=== PATIENT | female | born 1950 | race Caucasian/White ===

== ENCOUNTER → 2016-08-17 | Outpatient (CLI) | payer OTHER ==
[~2016-08-17] MED LIST: ATV5 PO; CLTP PO; CPR500 PO; DVNUNK; ESCI10TA17 PO; LEVO75TA36 PO; MULT-506 PO; OMEG10007 PO; PHEN-876 PO
[2016-08-17 12:38] LABS: BASO % 1.4 %; BASO ABS # 0.08 K/uL (0-0.2); COMPLETE YES; EOS % 2.6 %; HEMATOCRIT 40.5 % (37-47); IG% 0.3 %; LYMPH % 33.8 %; LYMPH ABS # 1.99 K/uL (1.2-3.4); MEAN CELL VOLUME 91.8 fL (80-100); MEAN CORPUSCULAR HEMOGLOBIN 30.6 pg (25-34); MEAN CORPUSCULAR HGB CONC 33.3 g/dl (32-36); MEAN PLATELET VOLUME 9.3 fL (7.4-10.4); MONO % 9.9 %; PLATELET COUNT 286 K/uL (130-400); RED BLOOD COUNT 4.41 M/uL (4.2-5.4); WHITE BLOOD COUNT 5.88 K/uL (4.8-10.8)
[2016-08-17 13:09] LABS: CALCIUM 9.8 mg/dl (8.5-10.1)
[2016-08-17 13:13] LABS: ALT/SGPT 24 U/L (12-78); AST/SGOT 15 U/L (15-37); BLOOD UREA NITROGEN 16 mg/dl (7-18); BUN/CREATININE RATIO 23.2 (10-20); CARBON DIOXIDE 27 mmol/L (21-32); CHLORIDE 105 mmol/L (98-107); CHOLESTEROL 243 mg/dl (0-200); CREATININE 0.69 mg/dl (0.60-1.20); GLUCOSE 100 mg/dl (70-99); POTASSIUM 3.9 mmol/L (3.5-5.1); SODIUM 140 mmol/L (136-145); TRIGLYCERIDES 359 mg/dl (0-150); VERY LOW DENSITY LIPOPROT CALC 72 mg/dl
[2016-08-17 13:24] LABS: ALB/GLOB RATIO 1.3 (0.9-2); ALKALINE PHOSPHATASE 121 U/L (45-117); CHOLESTEROL/HDL RATIO 5.2; HDL CHOLESTEROL 47 mg/dl; LDL CHOLESTEROL CALCULATED 124 mg/dl
== END | disposition home or self-care (01) ==
LOC: C.LABPBG 07:51
PROVIDERS: ATTEND Internal Medicine Geriatric Medicine
DX: E03.9 Hypothyroidism, unspecified (principal); I10 Essential (primary) hypertension; E78.5 Hyperlipidemia, unspecified; R33.9 Retention of urine, unspecified; M17.9 Osteoarthritis of knee, unspecified

== ENCOUNTER → 2017-04-06 | Outpatient (CLI) | payer OTHER | END | disposition home or self-care (01) | LOC: C.MAMM 09:43 | PROVIDERS: ATTEND Internal Medicine Geriatric Medicine | DX: R74.8 Abnormal levels of other serum enzymes (principal) ==

== ENCOUNTER → 2017-07-05 | Outpatient (CLI) | payer OTHER ==
--- NOTE | 2017-07-05 12:35 | DIAGNOSTIC IMAGING REPORT ---
CERVICAL SPINE 3 VIEWS HISTORY: M54.2 Posterior neck pain COMPARISON: None. FINDINGS: The cervical spine is visualized from C1 through the superior endplate of T1. There is no fracture. 1.5 mm of anterolisthesis of C4 and C5. Moderate disc space narrowing and endplate osteophytes at C5-C6 and C6-C7. Moderate facet degenerative changes throughout the majority of the cervical spine. Prevertebral soft tissues and the atlantodens interval are intact. IMPRESSION: No fractures within the cervical spine. Moderate degenerative changes as described above. Electronically signed by: Darian Talbot M.D. 07/05/2017 12:34 PM Dictated Date/Time: 07/05/2017 12:29 PM
== END | disposition home or self-care (01) ==
LOC: C.RADBC 12:00
PROVIDERS: ATTEND Physician Assistant Medical
DX: M54.2 Cervicalgia (principal)

== ENCOUNTER → 2017-09-02 | Outpatient (CLI) | payer OTHER ==
[2017-09-02 14:51] LABS: ALKALINE PHOSPHATASE 142 U/L (45-117); ALT/SGPT 27 U/L (12-78); AST/SGOT 18 U/L (15-37); BLOOD UREA NITROGEN 17 mg/dl (7-18); CALCIUM 9.7 mg/dl (8.5-10.1); CARBON DIOXIDE 30 mmol/L (21-32); CREATININE 0.75 mg/dl (0.60-1.20); GLUCOSE 89 mg/dl (70-99); POTASSIUM 4.1 mmol/L (3.5-5.1); SODIUM 139 mmol/L (136-145); TOTAL PROTEIN 7.4 gm/dl (6.4-8.2)
== END | disposition home or self-care (01) ==
LOC: C.LABPBG 09:02
PROVIDERS: ATTEND Internal Medicine Geriatric Medicine
DX: I10 Essential (primary) hypertension (principal); R74.8 Abnormal levels of other serum enzymes

== ENCOUNTER 2019-09-05 10:03 | Inpatient (IN) ==
[2019-09-05] MEDS ORDERED: dilTIAZem HCl 5 MG/ML 5 ML VIAL IV STA (10:32)
[2019-09-05] MEDS ORDERED: STAT IV Infusion **Titration per Protocol STA ×2 (10:32→18:00)
--- NOTE | 2019-09-05 10:39 | Emergency Department Note ---
History of Present Illness General Chief Complaint: Cardiac Assessment Stated Complaint: RAPID HEART RATE,AFIB Time Seen by Provider: 09/05/19 10:26 Source: patient Mode of arrival: ambulatory Limitations: no limitations History of Present Illness Provider Complaint: other (Rapid A. fib) This is a 69-year-old female who presents to the ED with a chief complaint of going to her PCP for a routine physical exam. The patient was found to be in A. fib with RVR. She was sent here for further evaluation. The patient states that she otherwise feels fine. She states that she thought she may have felt a little palpitations last night but currently does not feel anything unusual. When she arrived to the ED, she was in A. fib with a heart rate around 140. The patient denies any symptoms at this time. She has no history of A. fib. Nothing makes her better or worse. Home Medications Home Medications Medication Instructions Recorded Confirmed Type cholecalciferol (vitamin D3) 5,000 unit PO QAM 07/21/18 09/05/19 History [Vitamin D3] diphenhydramine-acetaminophen 2 tab PO HS PRN 07/21/18 09/05/19 History [Tylenol PM Extra Strength] magnesium oxide 500 mg PO QAM 07/21/18 09/05/19 History multivitamin 1 tab PO QAM 07/21/18 09/05/19 History timolol maleate 1 drp OPL QAM 07/21/18 09/05/19 History levothyroxine 75 mcg tablet 75 mcg PO QAM #90 tab 10/04/18 09/05/19 Rx escitalopram oxalate 10 mg tablet See Rx Instructions .ROUTE 01/10/19 09/05/19 Rx .COMPLEX #90 tablet pravastatin 20 mg tablet 20 mg PO QAM #90 tab 07/10/19 09/05/19 Rx cyclobenzaprine 10 mg tablet 10 mg PO TID #30 tab 08/25/19 09/05/19 Rx lorazepam 0.5 mg tablet 0.5 mg PO HS #30 tab 08/25/19 09/05/19 Rx acetaminophen [Tylenol Extra 500 mg PO Q6H PRN 09/05/19 09/05/19 History Strength] esomeprazole magnesium 40 mg PO QAM 09/05/19 09/05/19 History hydrochlorothiazide 12.5 mg PO QAM 09/05/19 09/05/19 History latanoprost 1 drp OPB HS 09/05/19 09/05/19 History meloxicam [Mobic] 15 mg PO Q2D 09/05/19 09/05/19 History valsartan 80 mg PO HS 09/05/19 09/05/19 History Allergies Allergy/AdvReac Type Severity Reaction Status Date / Time adhesive Allergy Intermediate skin Verified 09/05/19 11:48 breaks out in blisters and is itchy codeine Allergy Mild nausea/vomi Verified 09/05/19 11:48 ting atorvastatin AdvReac Unknown severe leg Verified 09/05/19 11:48 pain rosuvastatin AdvReac Unknown abdominal Verified 09/05/19 11:48 pain, nausea Past Med/Surg History Medical History Anxiety 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 Degenerative disc disease GERD (gastroesophageal reflux disease) Glaucoma History of cervical cancer (1993) History of colon polyps History of squamous cell carcinoma of skin chest Hyperlipidemia Hypertension Hypothyroidism Insomnia Osteoarthritis Osteopenia Venous insufficiency Surgical History History of bowel resection bowel obstruction History of esophagogastroduodenoscopy (EGD) History of eye surgery right eye History of Mohs micrographic surgery for skin cancer History of surgery lump removed from back of ear under local History of total abdominal hysterectomy and bilateral salpingo-oophorectomy History of wisdom tooth extraction Status post endovenous radiofrequency ablation (RFA) of saphenous vein (2012) b/l legs Family History Mother Family hx colonic polyps Lung cancer Sister Family hx colonic polyps Family/Other Asthma A-fib Dyslipidemia Hypertension Father Lung cancer Other No family history of adverse response to anesthesia Denies family history of Ovarian cancer Prostate cancer Breast cancer Colorectal cancer Social History Preferred Language: Frisian Communication Ability: Effective Visual Impairment: No Limitations Hearing Ability: Normal [place] Custodian Required: No Beliefs That Will Affect Care: None Current Living Situation: Spouse current occupational status: retired Feels Safe at Home: Yes Smoking Status: Never smoker Second Hand Exposure: No ; Hx Alcohol Use: No Hx Substance Use: No Childhood Exposure to Second-Hand Smoke: No Diet Comment: regular caffeine: Yes (1/2 cup coffee) Dental Care, Regularly: Yes Physical Activity Frequency: 3-4 Times per Week Physical Activity Frequency Comment: gym Seatbelt Use: always Sunscreen Use: Yes Review of Systems A total of 10 systems reviewed and were otherwise negative Physical Exam Vital Signs Vital Signs - 24 hr 09/05/19 10:12 09/05/19 11:04 09/05/19 11:30 Temperature 36.3 C L Temperature Source Oral Pulse Rate 115 H 93 H 108 H Pulse Rate from SpO2 Sensor Respiratory Rate 20 21 16 Respiratory Effort / Characteristics Non-Labored Spontaneous Respiratory Depth Normal Blood Pressure 120/89 118/74 105/82 Blood Pressure Mean 99 88 90 Blood Pressure Position Sitting Pulse Oximetry 97 96 96 Oxygen Delivery Method Room Air Sepsis Recent Fever Within 48 Hours No Sepsis Action Taken by Nursing No Action Required 09/05/19 12:01 09/05/19 12:30 09/05/19 13:00 Temperature Temperature Source Pulse Rate 101 H 98 H 102 H Pulse Rate from SpO2 Sensor 106 H 102 H Respiratory Rate 17 16 20 Respiratory Effort / Characteristics Respiratory Depth Blood Pressure 119/97 125/83 130/100 Blood Pressure Mean 102 93 105 Blood Pressure Position Pulse Oximetry 95 95 97 Oxygen Delivery Method Sepsis Recent Fever Within 48 Hours Sepsis Action Taken by Nursing 09/05/19 13:31 09/05/19 14:00 Temperature Temperature Source Pulse Rate 112 H 114 H Pulse Rate from SpO2 Sensor 100 H 107 H Respiratory Rate 20 17 Respiratory Effort / Characteristics Respiratory Depth Blood Pressure 149/88 H 123/86 Blood Pressure Mean 103 88 Blood Pressure Position Pulse Oximetry 95 94 Oxygen Delivery Method Sepsis Recent Fever Within 48 Hours Sepsis Action Taken by Nursing CONSTITUTIONAL/VITAL SIGNS: Reviewed / noted above. GENERAL: Non-toxic in appearance. INTEGUMENTARY: Warm, dry, and [place]. HEAD: Normocephalic. EYES: without scleral icterus or trauma. ENT/OROPHARYNX: clear and moist. LYMPHADENOPATHY/NECK: Is supple without lymphadenopathy or meningismus. RESPIRATORY: Lungs clear and equal. CARDIOVASCULAR: Rapid and irregular rhythm GI/ABDOMEN: Soft and nontender. No organomegaly or pulsatile mass. No rebound or guarding. Normal bowel sounds. EXTREMITIES: Warm and well perfused. BACK: No CVA tenderness. NEUROLOGICAL: Intact without focal deficits. PSYCHIATRIC: normal affect. MUSCULOSKELETAL: Normally developed with good muscle tone. TRIAGE NURSING DOCUMENTATION REVIEWED. Course Administered Medications Diltiazem HCl 125 mg/ Dextrose 125 mls @ 5 mls/hr IV .Q24H JET; Protocol Stop: 10/05/19 10:44 Last Titration: 09/05/19 12:23 Dose: 10 mg/hr, 10 mls/hr Documented by: [id number] Cosigned by: [id number] Admin: 09/05/19 10:57 Dose: 5 mg/hr, 5 mls/hr Documented by: [id number] Cosigned by: [id number] Discontinued Medications Apixaban (Eliquis) 5 mg PO ONCE ONE Stop: 09/05/19 13:16 Last Admin: 09/05/19 13:36 Dose: 5 mg Documented by: [id number] Diltiazem HCl (Cardizem) 20 mg IV NOW STA Stop: 09/05/19 10:33 Last Admin: 09/05/19 10:57 Dose: 20 mg Documented by: [id number] Cosigned by: [id number] Sodium Chloride (Nss) 500 mls @ 999 mls/hr IV .Q31M JET Stop: 09/05/19 11:15 Last Infusion: 09/05/19 11:46 Dose: 0 mls/hr Documented by: [id number] Admin: 09/05/19 11:01 Dose: 999 mls/hr Documented by: [id number] Miscellaneous () 1 ea N/A NOW STA Stop: 09/05/19 10:33 Last Admin: 09/05/19 10:58 Dose: Not Given Documented by: [id number] Medical Decision Making Differential Diagnosis The differential that was considered includes acute myocardial infarction, acute coronary syndrome, myocarditis, pericarditis, pericardial effusions /tamponade, esophageal perforation, thoracic aortic dissection, pulmonary embolism, pneumonia, pneumothorax, pancreatitis, shingles, acute cholecystitis, perforated abdominal viscus. Medical Records Attestation: I reviewed the patient's medical records. Home Medications Current Medication List: was personally reviewed by me Laboratory Data Attestation: I reviewed the patient's lab results. Result diagrams: 09/05/19 10:40 09/05/19 10:40 Labs: Lab Results 09/05/19 09/05/19 09/05/19 Range/Units 10:40 10:40 10:40 WBC 7.25 (4.8-10.8) K/uL RBC 4.76 (4.2-5.4) M/uL Hgb 15.3 (12.0-16.0) g/dL Hct 43.7 (37-47) % MCV 91.8 (80-100) fL MCH 32.1 (25-34) pg MCHC 35.0 (32-36) g/dL RDW Std Deviation 43.2 (36.4-46.3) fL RDW Coeff of Malena 12.8 (11.5-14.5) % Plt Count 290 (130-400) K/uL MPV 9.1 (7.4-10.4) fL Immature Gran % (Auto) 0.3 % Neut % (Auto) 54.6 % Lymph % (Auto) 33.5 % [place] % (Auto) 8.0 % Eos % (Auto) 2.5 % Baso % (Auto) 1.1 % Immature Gran # (Auto) 0.02 (0.00-0.02) K/uL Neut # (Auto) 3.96 (1.4-6.5) K/uL Lymph # (Auto) 2.43 (1.2-3.4) K/uL [place] # (Auto) 0.58 (0.11-0.59) K/uL Eos # (Auto) 0.18 (0-0.5) K/uL Baso # (Auto) 0.08 (0-0.2) K/uL PT 11.2 (9.0-12.0) Seconds INR 1.1 (0.9-1.1) APTT 28.7 (21.0-31.0) Seconds PTT Ratio 1.0 Sodium 141 (136-145) mmol/L Potassium 4.3 (3.5-5.1) mmol/L Chloride 107 (98-107) mmol/L Carbon Dioxide 27 (21-32) mmol/L Anion Gap 7.0 (3-11) BUN 20 H (7-18) mg/dl Creatinine 0.81 (0.6-1.2) mg/dl Est Cr Clr Drug Dosing 66.9 ml/min Est GFR ( Amer) 85.9 Est GFR (Non-Af Amer) 74.1 BUN/Creatinine Ratio 24.4 H (10-20) Glucose 109 H (70-99) mg/dl Calcium 9.8 (8.5-10.1) mg/dl Total Bilirubin 0.4 (0.2-1) mg/dl AST 23 (15-37) U/L ALT 33 (12-78) U/L Alkaline Phosphatase 151 H (45-117) U/L Total Creatine Kinase 99 (26-192) U/L Troponin I 0.085 H* (0-0.045) ng/ml Total Protein 7.8 (6.4-8.2) gm/dl Albumin 4.1 (3.4-5.0) gm/dl Globulin 3.7 (2.5-4.0) gm/dl Albumin/Globulin Ratio 1.1 (0.9-2) Lipase 95 (73-393) U/L TSH 1.110 (0.300-4.500) uIu/ml Imaging Data Chest x-ray: Attestation: I personally reviewed and interpreted this imaging study as f jyotsna: My impression: No acute disease Radiologist's impression: Chest x-ray: No acute process ECG Data Attestation: I personally reviewed and interpreted this ECG as follows: Indication: palpitations Rate (beats per minute): 150 Rhythm: atrial fibrillation Findings: no PVC, no ST elevation and no prolonged QT Blood Pressure Blood Pressure Findings: Normal blood pressure MDM Narrative This is a 69-year-old female who presents to the ED with a chief complaint of going to her PCP for a routine physical exam. The patient was found to be in A. fib with RVR. She was sent here for further evaluation. The patient states that she otherwise feels fine. She states that she thought she may have felt a little palpitations last night but currently does not feel anything unusual. When she arrived to the ED, she was in A. fib with a heart rate around 140. The patient denies any symptoms at this time. She has no history of A. fib. Her exam reveals a rapid and irregular heart rate. Exam was otherwise unremarkable. The patient's monitor and twelve-lead EKG show the patient is in atrial fibrillation with RVR with a heart rate around 150. The patient was started on IV Cardizem bolus and IV Cardizem drip. This improved the heart rate but she remained in atrial fibrillation. A twelve-lead EKG shows A. fib at a rate of 150 without ischemic changes. The patient's troponin was slightly elevated. Her chemistry panel and CBC were unremarkable. The patient will be seen by the hospitalist for further inpatient evaluation and care. She was given a dose of Eliquis p.o. here. Cardiac monitoring: An order was placed for continuous cardiac monitoring. The monitor shows a rate of 100-1140 with atrial fibrillation rhythm. Impression & Plan Atrial fibrillation with RVR, Elevated troponin Critical Care Time Critical Care Time: Yes Total Critical Care Time: 40 Discharge Plan Visit Data Chief Complaint: Cardiac Assessment Stated Complaint: RAPID HEART RATE,AFIB ED Provider: Liam Martin Discharge Problem: Atrial fibrillation with RVR, Elevated troponin Patient Disposition: Admitted As Inpatient Forms Stand Alone Forms: [facility] Prescriptions Prescriptions: No Action levothyroxine 75 mcg tablet 75 mcg PO QAM Qty: 90 RF: 3 escitalopram oxalate 10 mg tablet See Rx Instructions .ROUTE .COMPLEX Qty: 90 RF: 1 pravastatin 20 mg tablet 20 mg PO QAM Qty: 90 RF: 1 cyclobenzaprine 10 mg tablet 10 mg PO TID Qty: 30 RF: 0 lorazepam 0.5 mg tablet 0.5 mg PO HS Qty: 30 RF: 0 magnesium oxide 500 mg Tablet 500 mg PO QAM RF: 0 diphenhydramine-acetaminophen [Tylenol PM Extra Strength] 25-500 mg Tablet 2 tab PO HS PRN (Reason: Sleep) RF: 0 multivitamin Tablet 1 tab PO QAM RF: 0 timolol maleate 0.5 % Drops 1 drp OPL QAM RF: 0 cholecalciferol (vitamin D3) [Vitamin D3] 5,000 unit Tablet 5,000 unit PO QAM RF: 0 latanoprost 0.005 % drops 1 drp OPB HS RF: 0 acetaminophen [Tylenol Extra Strength] 500 mg Tablet 500 mg PO Q6H PRN (Reason: Pain) RF: 0 meloxicam [Mobic] 15 mg tablet 15 mg PO Q2D RF: 0 valsartan 80 mg tablet 80 mg PO HS RF: 0 esomeprazole magnesium 40 mg capsule,delayed release(DR/EC) 40 mg PO QAM RF: 0 hydrochlorothiazide 12.5 mg tablet 12.5 mg PO QAM RF: 0 Referrals Referrals: Ricotta,Cherelle M., DO [Primary Care Provider] -
[2019-09-05] MEDS ORDERED: SODIUM CHLORIDE 0.9% 500 ML IV SCH (10:45)
[2019-09-05] MEDS ORDERED: dilTIAZem HCL 125 MG in DEXTROSE 5% 100 ML IV SCH ×2 (10:45→18:00)
--- NOTE | 2019-09-05 10:57 | XRay Report ---
XR chest 1V portable HISTORY: Atypical Chest Pain COMPARISON: None. FINDINGS: Mild eventration of right hemidiaphragm. The heart is normal in size. The lungs are clear. No pleural effusions. No pneumothorax. IMPRESSION: No acute process. ACT 112: Negative or not required by law. Electronically signed by: Darian Talbot M.D. 09/05/2019 10:55 AM
[2019-09-05 11:06] LABS: Basophils # (auto) 0.08 K/uL (0-0.2); Basophils % (auto) 1.1 %; Eosinophils # (auto) 0.18 K/uL (0-0.5); Eosinophils % (auto) 2.5 %; Hematocrit (blood only) 43.7 % (37-47); Hemoglobin 15.3 g/dL (12.0-16.0); Immature Granulocytes # (auto) 0.02 K/uL (0.00-0.02); Immature Granulocytes % (auto) 0.3 %; Lymphocytes # (auto) 2.43 K/uL (1.2-3.4); Lymphocytes % (auto) 33.5 %; Mean Corpuscular Hemoglobin 32.1 pg (25-34); Mean Corpuscular Volume 91.8 fL (80-100); Mean Platelet Volume 9.1 fL (7.4-10.4); Monocytes # (auto) 0.58 K/uL (0.11-0.59); Neutrophils # (auto) 3.96 K/uL (1.4-6.5); Neutrophils % (auto) 54.6 %; Platelet Count 290 K/uL (130-400); RDW Coefficient of Variation 12.8 % (11.5-14.5); RDW Standard Deviation 43.2 fL (36.4-46.3); Red Blood Count 4.76 M/uL (4.2-5.4); White Blood Count 7.25 K/uL (4.8-10.8)
[2019-09-05 11:19] LABS: Albumin Level 4.1 gm/dl (3.4-5.0); BUN Creatinine Ratio 24.4 (10-20); Calcium 9.8 mg/dl (8.5-10.1); Creatinine Clr Calc Pharmacy 66.9 ml/min; Est GFR (African American) 85.9; Est GFR (Non-African American) 74.1; INR 1.1 (0.9-1.1); Partial Thromboplastin Time 28.7 Seconds (21.0-31.0); Potassium 4.3 mmol/L (3.5-5.1); Prothrombin Time 11.2 Seconds (9.0-12.0)
[2019-09-05 11:40] LABS: Albumin Globulin Ratio 1.1 (0.9-2); Bilirubin,Total 0.4 mg/dl (0.2-1); Globulin 3.7 gm/dl (2.5-4.0); Thyroid Stimulating Hormone 1.11 uIu/ml (0.300-4.500); Total Protein 7.8 gm/dl (6.4-8.2); Troponin I 0.085 ng/ml (0-0.045)
[2019-09-05] MEDS ORDERED: APIXABAN 5 MG TABLET PO SCH (13:00)
[2019-09-05] MEDS ORDERED: APIXABAN 5 MG TABLET PO ONE (13:15)
--- NOTE | 2019-09-05 14:55 | History & Physical Report ---
Date of Service September 05, 2019 Assessment & Plan (1) Atrial fibrillation with RVR: Uncertain etiology CBC, PRP WNL CXR neg for acute Trop with mild elevation, likely demand ischemia HR in the 140s on arrival, now low 100s s/p cardizem drip Continue cardizem drip ECHO, overnight pulse ox pending TSH WNL Started on eliquis in the ED, will continue Cardiology c/s pending (2) Elevated troponin: As noted above, serials pending (3) Anxiety: continue home meds (4) Insomnia: continue home meds (5) Hypertension: continue home meds (6) Hypothyroidism: continue home meds TSH WNL (7) Hyperlipidemia: continue home meds Lipids pending (8) GERD (gastroesophageal reflux disease): continue home meds (9) History of squamous cell carcinoma of skin: Multiple episodes removed "over the years" (10) History of cervical cancer: 1993 (11) DVT prophylaxis: Eliquis History of Present Illness Primary Care Provider: Cherelle Ayala, DO 69 y/o F who was sent here from PCP's office after a routine EKG being done as part of a wellness exam revealed afib with RVR. Pt denies prior hx of same. She states that she does occasionally get palpitations over the years, but these are generally fleeting. She states that she had this several times last night and that it was bothersome to her throughout the night which has never happened before. Pt states that she has been SOB with stairs the last two weeks, which is new for her. She has a lot of knee pain and thought that this was related to her knees plus the fact that she has been gaining weight since the holidays, particularly the last two months. Pt denies fever, chest pain, abd pain, n/v/c/d, LE swelling. Pt states that she does snore. No hx of sleep study. Allergies Allergy/AdvReac Type Severity Reaction Status Date / Time adhesive Allergy Intermediate skin Verified 09/05/19 11:48 breaks out in blisters and is itchy codeine Allergy Mild nausea/vomi Verified 09/05/19 11:48 ting atorvastatin AdvReac Unknown severe leg Verified 09/05/19 11:48 pain rosuvastatin AdvReac Unknown abdominal Verified 09/05/19 11:48 pain, nausea Home Medications Home Medications Medication Instructions Recorded Confirmed Type cholecalciferol (vitamin D3) 5,000 unit PO QAM 07/21/18 09/05/19 History [Vitamin D3] diphenhydramine-acetaminophen 2 tab PO HS PRN 07/21/18 09/05/19 History [Tylenol PM Extra Strength] magnesium oxide 500 mg PO QAM 07/21/18 09/05/19 History multivitamin 1 tab PO QAM 07/21/18 09/05/19 History timolol maleate 1 drp OPL QAM 07/21/18 09/05/19 History levothyroxine 75 mcg tablet 75 mcg PO QAM #90 tab 10/04/18 09/05/19 Rx escitalopram oxalate 10 mg tablet See Rx Instructions .ROUTE 01/10/19 09/05/19 Rx .COMPLEX #90 tablet pravastatin 20 mg tablet 20 mg PO QAM #90 tab 07/10/19 09/05/19 Rx cyclobenzaprine 10 mg tablet 10 mg PO TID #30 tab 08/25/19 09/05/19 Rx lorazepam 0.5 mg tablet 0.5 mg PO HS #30 tab 08/25/19 09/05/19 Rx acetaminophen [Tylenol Extra 500 mg PO Q6H PRN 09/05/19 09/05/19 History Strength] esomeprazole magnesium 40 mg PO QAM 09/05/19 09/05/19 History hydrochlorothiazide 12.5 mg PO QAM 09/05/19 09/05/19 History latanoprost 1 drp OPB HS 09/05/19 09/05/19 History meloxicam [Mobic] 15 mg PO Q2D 09/05/19 09/05/19 History valsartan 80 mg PO HS 09/05/19 09/05/19 History Past Med/Surg History Medical History Anxiety 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 Degenerative disc disease GERD (gastroesophageal reflux disease) Glaucoma History of cervical cancer (1993) History of colon polyps History of squamous cell carcinoma of skin chest Hyperlipidemia Hypertension Hypothyroidism Insomnia Osteoarthritis Osteopenia Venous insufficiency Surgical History History of bowel resection bowel obstruction History of esophagogastroduodenoscopy (EGD) History of eye surgery right eye History of Mohs micrographic surgery for skin cancer History of surgery lump removed from back of ear under local History of total abdominal hysterectomy and bilateral salpingo-oophorectomy History of wisdom tooth extraction Status post endovenous radiofrequency ablation (RFA) of saphenous vein (2012) b/l legs Family History (Updated 09/05/19 @ 15:04 by Emily Ellison DO) Mother Family hx colonic polyps Lung cancer Pacemaker Sister Family hx colonic polyps Pacemaker Family/Other Asthma A-fib Dyslipidemia Hypertension Father Lung cancer Other No family history of adverse response to anesthesia Denies family history of Ovarian cancer Prostate cancer Myocardial infarction Breast cancer Colorectal cancer Social History Preferred Language: Bruneian Communication Ability: Effective Visual Impairment: No Limitations Hearing Ability: Normal It Account Manager Required: No Beliefs That Will Affect Care: None Current Living Situation: Spouse current occupational status: retired Other Information That Helps Us Care for You: No Feels Safe at Home: Yes Safety Concerns: Feels Safe At This Time Smoking Status: Never smoker Second Hand Exposure: No ; Hx Alcohol Use: No Hx Substance Use: No Childhood Exposure to Second-Hand Smoke: No Diet Comment: regular caffeine: Yes (1/2 cup coffee) Dental Care, Regularly: Yes Physical Activity Frequency: 3-4 Times per Week Physical Activity Frequency Comment: gym Seatbelt Use: always Sunscreen Use: Yes Review of Systems Review of Systems: Pertinent positives and negatives reviewed in HPI--all others negative Physical Exam Constitutional: WD/WN, vitals as above Eyes: normal visual aparicio by confrontation and + anicteric sclerae Neck: normal visual inspection and trachea midline Respiratory: normal respiratory effort, lungs clear to auscultation Cardiovascular: Rate/Rhythm: + irregularly irregular Gastrointestinal (Abdomen): Inspection/Auscultation: abdomen not distended Percussion/Palpation: abdomen soft; abdomen nontender Musculoskeletal: Head/Neck/Chest: normocephalic and head atraumatic negative for edema, peripheral pulses intact Skin: no rashes, warm and dry Neurologic: awake; not confused Speech / Cognition: normal speech Psychiatric: A+Ox3, euthymic affect Results & Data Results & Data ([facility]) Vital Signs (Past 12 Hours) Vital Signs Temp Pulse Resp BP Pulse Ox 05/19/20 14:00 114 H 17 123/86 94 09/05/19 13:31 112 H 20 149/88 H 95 09/05/19 13:00 102 H 20 130/100 97 09/05/19 12:30 98 H 16 125/83 95 09/05/19 12:01 101 H 17 119/97 95 09/05/19 11:30 108 H 16 105/82 96 09/05/19 11:04 93 H 21 118/74 96 09/05/19 10:12 36.3 C L 115 H 20 120/89 97 Diagnostic Findings CXR: neg for acute ECG Additional Comments: Afib/RVR Code Status & VTE Plan Code Status Full code VTE Prophylaxis Plan VTE Prophylaxis will be ordered: Yes PG Care Time/CCT Total # of Minutes Spent Total Time Spent with Patient: Total time spent is greater than 50% in coordination of care (as documented) at patient's floor/unit and/or counseling patient: Coding Level of Care Code 18898 Initial Inpt Care Lvl 3 Diagnoses Atrial fibrillation with RVR I48.91 Elevated troponin R79.89 Anxiety F41.9 Insomnia G47.00 Hypertension I10 Hypothyroidism E03.9 Hyperlipidemia E78.5 GERD (gastroesophageal reflux disease) K21.9 History of squamous cell carcinoma of skin Z85.828 History of cervical cancer Z85.41 DVT prophylaxis Z29.9
--- NOTE | 2019-09-05 15:54 | Electrocardiogram Report ---
Test Reason : Blood Pressure : / mmHG Vent. Rate : 149 BPM Atrial Rate : 227 BPM P-R Int : 000 ms QRS Dur : 076 ms QT Int : 284 ms P-R-T Axes : 000 022 000 degrees QTc Int : 447 ms Atrial fibrillation with rapid ventricular response Abnormal ECG When compared with ECG of 15-JAN-1994 08:59, Atrial fibrillation has replaced Sinus rhythm Vent. rate has increased BY 68 BPM Inverted T waves have replaced nonspecific T wave abnormality in Inferior leads T wave amplitude has decreased in Anterolateral leads Confirmed by Trell Carreon ([id number]) on 09/05/2019 3:54:18 PM Referred By: Cherelle Ayala Confirmed By:Jorden Carreon
[2019-09-05] MEDS ORDERED: ACETAMINOPHEN 500 MG TAB PO PRN ×2 (18:00→18:22)
[2019-09-05] MEDS ORDERED: ONDANSETRON INJ 2 MG/ML 2 ML VIAL IV PRN (18:00)
[2019-09-05] MEDS ORDERED: MAGNESIUM HYDROXIDE SUSP 30 ML UDC PO PRN (18:00)
[2019-09-05] MEDS ORDERED: LATANOPROST 0.005% OP SOLN 2.5 ML BTL OPB SCH (21:00)
[2019-09-05] MEDS ORDERED: LORazepam 0.5 MG TAB PO SCH (21:00)
[2019-09-05] MEDS ORDERED: VALSARTAN 80 MG TAB PO SCH (21:00)
[2019-09-05] MEDS: APIXABAN 5 MG TABLET PO SCH (21:11)
[2019-09-05] MEDS: CYCLOBENZAPRINE HCL 10 MG TAB PO SCH (21:11)
[2019-09-06] MEDS ORDERED: LEVOTHYROXINE SODIUM 75 MCG TABLET PO SCH (06:30)
[2019-09-06 08:31] LABS: BUN Creatinine Ratio 21.6 (10-20); Calcium 9.8 mg/dl (8.5-10.1); Creatinine Clr Calc Pharmacy 73.2 ml/min; Est GFR (African American) 95.8; Est GFR (Non-African American) 82.7; Potassium 4.3 mmol/L (3.5-5.1)
[2019-09-06] MEDS: APIXABAN 5 MG TABLET PO SCH (08:37)
[2019-09-06] MEDS: CYCLOBENZAPRINE HCL 10 MG TAB PO SCH (08:37)
[2019-09-06] MEDS ORDERED: ESCITALOPRAM OXALATE 10 MG TAB PO SCH (09:00)
[2019-09-06] MEDS ORDERED: hydroCHLOROthiazide 25 MG TAB PO SCH (09:00)
[2019-09-06] MEDS ORDERED: PRAVASTATIN SOD 20 MG TAB PO SCH (09:00)
[2019-09-06] MEDS ORDERED: PANTOprazole 40 MG TAB PO SCH (09:00)
[2019-09-06] MEDS ORDERED: MULTIVITAMIN TAB PO SCH (09:00)
[2019-09-06] MEDS ORDERED: CHOLECALCIFEROL 1,000 UNITS 25 MCG TAB PO SCH (09:00)
[2019-09-06] MEDS ORDERED: MAGNESIUM OXIDE 400 MG TAB PO SCH (09:00)
[2019-09-06] MEDS ORDERED: TIMOLOL MALEATE 0.25% OP SOLN 5 ML BTL OPL SCH (09:00)
--- NOTE | 2019-09-06 09:50 | Cardiology Consultation ---
Date of Consultation September 06, 2019 Assessment & Plan (1) Atrial fibrillation with RVR: 69 yo F with HTN who was admitted for first episode of symptomatic Afib. 1. Atrial Fibrillation with RVR - spontaneously converted back to sinus on 09/04 at 19:22 - TTE showed no valvular heart disease, stage I diastolic dysfunction, mild LVH - would benefit from switching HCTZ + valsartan to 240 mg Diltiazem for combined BP and afib rate control moving forward - agree with starting Eliquis - pulse ox analysis for questionable sleep apnea negative - follow up with cardiology outpatient 2. Elevated Troponins - Trops trended (0.085, 0.060, 0.067) - in setting of no chest pain or complaints, spontaneous conversion out of Afib, no further action recommended (2) Elevated troponin: Supervising Physician Co-Signing Physician Notes I saw and examined the patient with Dr. nunez tone agree with the documentation noted above. Briefly, the patient presented for an annual evaluation and was discovered to have atrial fibrillation and high ventricular rates. She did have some mild symptoms associated with her high ventricular rates. The etiology of her atrial fibrillation is likely age related and chronic hypertension. She does not appear to have a positive screen for obstructive sleep apnea. Think the best option for treatment is a rate control strategy at this point. Perhaps her antihypertensives can be changed to diltiazem for both its antihypertensive effect and rate control benefits. Her chads Vasc score is high enough that she should be on systemic anticoagulation indefinitely. The patient did return to sinus rhythm. I think it is safe for discharge in follow-up in the outpatient setting. History of Present Illness Attending Physician: Emily Ellison DO History of Present Illness 69 yo F who was sent to ED by her PCP after being found to be in Afib while at her annual physical. Denied any palpitations, chest pain, SOB, during episode. Attests to having a family history of Afib in her mother and 3/4 sisters. Denies personal hx of [place], stroke, no hx of anticoagulation. Was able to tell when she converted out of Afib spontaneously because her "chest felt peaceful". Denies any previous AFib hx Allergies Allergy/AdvReac Type Severity Reaction Status Date / Time adhesive Allergy Intermediate skin Verified 09/05/19 11:48 breaks out in blisters and is itchy codeine Allergy Mild nausea/vomi Verified 09/05/19 11:48 ting atorvastatin AdvReac Unknown severe leg Verified 09/05/19 11:48 pain rosuvastatin AdvReac Unknown abdominal Verified 09/05/19 11:48 pain, nausea Home Medications Home Medications Medication Instructions Recorded Confirmed Type cholecalciferol (vitamin D3) 5,000 unit PO QAM 07/21/18 09/05/19 History [Vitamin D3] diphenhydramine-acetaminophen 2 tab PO HS PRN 07/21/18 09/05/19 History [Tylenol PM Extra Strength] magnesium oxide 500 mg PO QAM 07/21/18 09/05/19 History multivitamin 1 tab PO QAM 07/21/18 09/05/19 History timolol maleate 1 drp OPL QAM 07/21/18 09/05/19 History levothyroxine 75 mcg tablet 75 mcg PO QAM #90 tab 10/04/18 09/05/19 Rx escitalopram oxalate 10 mg tablet See Rx Instructions .ROUTE 01/10/19 09/05/19 Rx .COMPLEX #90 tablet pravastatin 20 mg tablet 20 mg PO QAM #90 tab 07/10/19 09/05/19 Rx cyclobenzaprine 10 mg tablet 10 mg PO TID #30 tab 08/25/19 09/05/19 Rx lorazepam 0.5 mg tablet 0.5 mg PO HS #30 tab 08/25/19 09/05/19 Rx acetaminophen [Tylenol Extra 500 mg PO Q6H PRN 09/05/19 09/05/19 History Strength] esomeprazole magnesium 40 mg PO QAM 09/05/19 09/05/19 History latanoprost 1 drp OPB HS 09/05/19 09/05/19 History meloxicam [Mobic] 15 mg PO Q2D 09/05/19 09/05/19 History apixaban [Eliquis] 5 mg PO BID #60 tab 09/06/19 Rx diltiazem HCl 240 mg PO DAILY #30 cap 09/06/19 Rx Patient History Medical History Anxiety 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 Degenerative disc disease GERD (gastroesophageal reflux disease) Glaucoma History of cervical cancer (1993) History of colon polyps History of squamous cell carcinoma of skin chest Hyperlipidemia Hypertension Hypothyroidism Insomnia Osteoarthritis Osteopenia Venous insufficiency Surgical History History of bowel resection bowel obstruction History of esophagogastroduodenoscopy (EGD) History of eye surgery right eye History of Mohs micrographic surgery for skin cancer History of surgery lump removed from back of ear under local History of total abdominal hysterectomy and bilateral salpingo-oophorectomy History of wisdom tooth extraction Status post endovenous radiofrequency ablation (RFA) of saphenous vein (2012) b/l legs Family History (Updated 09/05/19 @ 15:04 by Emily Ellison DO) Mother Family hx colonic polyps Lung cancer Pacemaker Sister Family hx colonic polyps Pacemaker Family/Other Asthma A-fib Dyslipidemia Hypertension Father Lung cancer Other No family history of adverse response to anesthesia Denies family history of Ovarian cancer Prostate cancer Myocardial infarction Breast cancer Colorectal cancer Social History Preferred Language: Yemeni Communication Ability: Effective Visual Impairment: No Limitations Hearing Ability: Normal Manufactured Buildings Repairer Required: No Beliefs That Will Affect Care: None Current Living Situation: Spouse current occupational status: retired Feels Safe at Home: Yes Smoking Status: Never smoker Second Hand Exposure: No ; Hx Alcohol Use: No Hx Substance Use: No Childhood Exposure to Second-Hand Smoke: No Diet Comment: regular caffeine: Yes (1/2 cup coffee) Dental Care, Regularly: Yes Physical Activity Frequency: 3-4 Times per Week Physical Activity Frequency Comment: gym Seatbelt Use: always Sunscreen Use: Yes Review of Systems Constitutional: no fatigue and no weakness Respiratory: + dyspnea on exertion; no cough, no dyspnea, no hemoptysis and no pain on inspiration Cardiovascular: + dyspnea on exertion; no chest pain, no chest pain with activity, no dyspnea at rest, no orthopnea, no palpitations, no lightheadedness and no edema Gastrointestinal: no abdominal pain and no nausea Neurologic: no dizziness Physical Exam Constitutional: WD/WN, vitals as above average body habitus Respiratory: normal respiratory effort, lungs clear to auscultation Auscultation: no rales, no rhonchi, no wheezes and no pleural rub Cardiovascular: RRR, no murmur, no edema Heart Sounds: normal S1 and normal S2; no gallop, no murmur and no cardiac rub Extremities: normal capillary refill; no calf tenderness and no edema Results & Data ([facility]) Vital Signs (Past 12 Hours) Vital Signs Temp Pulse Pulse Pulse Resp BP Pulse Ox 09/06/19 07:45 37.0 C 74 15 119/78 95 09/06/19 07:31 68 09/06/19 03:34 36.8 C 75 16 105/64 98 09/05/19 23:29 36.8 C 71 19 112/68 95 09/05/19 22:23 71 Pulse Ox 09/06/19 07:45 09/06/19 07:31 09/06/19 03:34 09/05/19 23:29 09/05/19 22:23 93 Laboratory Results WBC 7.25 K/uL (4.8-10.8) 09/05/19 10:40 RBC 4.76 M/uL (4.2-5.4) 09/05/19 10:40 Hgb 15.3 g/dL (12.0-16.0) 09/05/19 10:40 Hct 43.7 % (37-47) 09/05/19 10:40 MCV 91.8 fL (80-100) 09/05/19 10:40 MCH 32.1 pg (25-34) 09/05/19 10:40 MCHC 35.0 g/dL (32-36) 09/05/19 10:40 RDW Std Deviation 43.2 fL (36.4-46.3) 09/05/19 10:40 RDW Coeff of Malena 12.8 % (11.5-14.5) 09/05/19 10:40 Plt Count 290 K/uL (130-400) 09/05/19 10:40 MPV 9.1 fL (7.4-10.4) 09/05/19 10:40 Immature Gran % (Auto) 0.3 % 09/05/19 10:40 Neut % (Auto) 54.6 % 09/05/19 10:40 Lymph % (Auto) 33.5 % 09/05/19 10:40 Travis % (Auto) 8.0 % 09/05/19 10:40 Eos % (Auto) 2.5 % 09/05/19 10:40 Baso % (Auto) 1.1 % 09/05/19 10:40 Immature Gran # (Auto) 0.02 K/uL (0.00-0.02) 09/05/19 10:40 Neut # (Auto) 3.96 K/uL (1.4-6.5) 09/05/19 10:40 Lymph # (Auto) 2.43 K/uL (1.2-3.4) 09/05/19 10:40 Travis # (Auto) 0.58 K/uL (0.11-0.59) 09/05/19 10:40 Eos # (Auto) 0.18 K/uL (0-0.5) 09/05/19 10:40 Baso # (Auto) 0.08 K/uL (0-0.2) 09/05/19 10:40 PT 11.2 Seconds (9.0-12.0) 09/05/19 10:40 INR 1.1 (0.9-1.1) 09/05/19 10:40 APTT 28.7 Seconds (21.0-31.0) 09/05/19 10:40 PTT Ratio 1.0 09/05/19 10:40 Sodium 141 mmol/L (136-145) 09/06/19 07:42 Potassium 4.3 mmol/L (3.5-5.1) 09/06/19 07:42 Chloride 107 mmol/L (98-107) 09/06/19 07:42 Carbon Dioxide 26 mmol/L (21-32) 09/06/19 07:42 Anion Gap 8.0 (3-11) 09/06/19 07:42 BUN 16 mg/dl (7-18) 09/06/19 07:42 Creatinine 0.74 mg/dl (0.6-1.2) 09/06/19 07:42 Est Cr Clr Drug Dosing 73.2 ml/min 09/06/19 07:42 Est GFR ( Amer) 95.8 09/06/19 07:42 Est GFR (Non-Af Amer) 82.7 09/06/19 07:42 BUN/Creatinine Ratio 21.6 (10-20) H 09/06/19 07:42 Glucose 99 mg/dl (70-99) 09/06/19 07:42 Calcium 9.8 mg/dl (8.5-10.1) 09/06/19 07:42 Total Bilirubin 0.4 mg/dl (0.2-1) 09/05/19 10:40 AST 23 U/L (15-37) 09/05/19 10:40 ALT 33 U/L (12-78) 09/05/19 10:40 Alkaline Phosphatase 151 U/L (45-117) H 09/05/19 10:40 Total Creatine Kinase 99 U/L (26-192) 09/05/19 10:40 Troponin I 0.067 ng/ml (0-0.045) H* 09/06/19 00:16 Total Protein 7.8 gm/dl (6.4-8.2) 09/05/19 10:40 Albumin 4.1 gm/dl (3.4-5.0) 09/05/19 10:40 Globulin 3.7 gm/dl (2.5-4.0) 09/05/19 10:40 Albumin/Globulin Ratio 1.1 (0.9-2) 09/05/19 10:40 Triglycerides 210 mg/dl (0-150) H 09/06/19 07:42 Cholesterol 208 mg/dl (0-200) H 09/06/19 07:42 LDL Cholesterol, Calc 126 mg/dl 09/06/19 07:42 VLDL Cholesterol, Calc 42 mg/dl 09/06/19 07:42 HDL Cholesterol 40 mg/dl 09/06/19 07:42 Cholesterol/HDL Ratio 5 09/06/19 07:42 Lipase 95 U/L (73-393) 09/05/19 10:40 TSH 1.110 uIu/ml (0.300-4.500) 09/05/19 10:40 Resident Activity Tracking Resident Involvement: Resident Care Provided Care Provided: Adult Hospital Medicine
--- NOTE | 2019-09-06 10:01 | XCELERA ---
[id number]
--- NOTE | 2019-09-06 10:31 | Discharge Summary ---
Date of Service September 06, 2019 Admission HPI Per Admitting Provider 69 y/o F who was sent here from PCP's office after a routine EKG being done as part of a wellness exam revealed afib with RVR. Pt denies prior hx of same. She states that she does occasionally get palpitations over the years, but these are generally fleeting. She states that she had this several times last night and that it was bothersome to her throughout the night which has never happened before. Pt states that she has been SOB with stairs the last two weeks, which is new for her. She has a lot of knee pain and thought that this was related to her knees plus the fact that she has been gaining weight since the holidays, particularly the last two months. Pt denies fever, chest pain, abd pain, n/v/c/d, LE swelling. Pt states that she does snore. No hx of sleep study. Principal Diagnosis Pt is feeling well today. She did not have palpitations overnight. Tolerating PO. Pt denies fever, SOB, chest pain, abd pain, n/v/c/d, LE pain or swelling. Discharge Exam Constitutional WD/WN, vitals as above Eyes normal visual aparicio by confrontation and + anicteric sclerae Neck normal visual inspection and trachea midline Respiratory normal respiratory effort, lungs clear to auscultation Cardiovascular Rate/Rhythm: regular rate and regular rhythm; no irregularly irregular Gastrointestinal (Abdomen) Inspection/Auscultation: abdomen not distended Percussion/Palpation: abdomen soft; abdomen nontender Musculoskeletal Head/Neck/Chest: normocephalic and head atraumatic Skin no rashes, warm and dry Neurologic awake; not confused Speech / Cognition: normal speech Psychiatric A+Ox3, euthymic affect Discharge Data Allergies Allergy/AdvReac Type Severity Reaction Status Date / Time adhesive Allergy Intermediate skin Verified 09/05/19 11:48 breaks out in blisters and is itchy codeine Allergy Mild nausea/vomi Verified 09/05/19 11:48 ting atorvastatin AdvReac Unknown severe leg Verified 09/05/19 11:48 pain rosuvastatin AdvReac Unknown abdominal Verified 09/05/19 11:48 pain, nausea Consultations 09/05/19 14:05 ED Decision to Admit Stat 09/05/19 14:25 ED Decision to Admit Stat 09/05/19 18:00 Consult Cardiology Routine Hospital Course (1) Atrial fibrillation with RVR: Uncertain etiology CBC, PRP WNL CXR neg for acute Trop with mild elevation to 0.085 and decreased to 0.067, likely demand ischemia HR in the 140s and afib/RVR on arrival, improved to low 100s s/p cardizem drip prior to admission, but still in afib Converted to NSR overnight ECHO was WNL with EF 60-65% and no structural issues noted overnight pulse ox neg for major desat events TSH WNL Started on eliquis in the ED, will continue on d/c given CHADSVASC score of 3 Cardiology recs for transition from valsartan and HCTZ to carvedilol and monitor on d/c Advised for daily home BP monitoring given change in medications. Pt advised to bring readings to all appts Pt does endorse snoring when lying on her back. Advised to sleep on side to avoid possible apnea. Pt may benefit from formal outpt sleep study (2) Elevated troponin: As noted above, serials pending (3) Anxiety: continue home meds (4) Insomnia: continue home meds (5) Hypertension: continue home meds (6) Hypothyroidism: continue home meds TSH WNL (7) Hyperlipidemia: continue home meds Lipids WNL-- LDL 126, HDL 40 (8) GERD (gastroesophageal reflux disease): continue home meds (9) History of squamous cell carcinoma of skin: Multiple episodes removed "over the years" (10) History of cervical cancer: 1993 (11) DVT prophylaxis: Eliquis Total Time Total Time Spent Total Time Spent (In Minutes): >30 Total Time Includes: Examination of the Patient, Discharge Planning, Medication Reconciliation, Communication With Other Providers and Other Discharge Plan Discharge Items Patient Disposition: Home - Self-Care Reason For Visit: AFIB/RVR Discharge Diagnosis: New onset afib Activity: Resume your previous activity Non-emergency contact: Primary Care Provider and Merchandising Coordinator Call non-emergency contact if: you have any medication questions and your symptoms worsen Follow-up/Referrals: Cherelle Ayala DO [Primary Care Provider] - 09/08/19 8:20 am (IF YOU CAN NOT MAKE THIS APT, PLEASE CALL THE OFFICE AND RESCHEDULE.) Colten Carreon MD [Physician] - (2 weeks, DR OLIVER OFFICE WILL CALL YOU WITH AN APT DAY AND TIME.) Diet: Heart Healthy Add Attending Provider Instructions: You should check your blood pressure once a day and take your readings with you to your next appts. The changes in medication may or may not also control your blood pressure, or may even cause it to drop too low, so we need to be sure you are being treated adequately. You are being started on Eliquis, which is a blood thinner. This could make you more likely to bruise or bleed, which can be an issue particularly when using NSAIDs like Meloxicam. You should be sure to take your Meloxicam with food to help avoid bleeding in your stomach related to the combination of the two medications. A sign that you might be having irritation to the lining of your stomach is nausea or stomach aching/pain after you take the meloxicam. Call your doctor to discuss other options if this is occurring. You may also want to consider an outpatient sleep study to further evaluate your snoring. Pending Studies at Discharge: No Stand-Alone Forms: [facility], Smoking Cessation Medications and DC Order Prescriptions: New Eliquis 5 mg Tablet 5 mg PO BID Qty: 60 RF: 0 diltiazem HCl 240 mg capsule,extended release 24hr 240 mg PO DAILY Qty: 30 RF: 0 Continued levothyroxine 75 mcg tablet 75 mcg PO QAM Qty: 90 RF: 3 escitalopram oxalate 10 mg tablet See Rx Instructions .ROUTE .COMPLEX Qty: 90 RF: 1 pravastatin 20 mg tablet 20 mg PO QAM Qty: 90 RF: 1 cyclobenzaprine 10 mg tablet 10 mg PO TID Qty: 30 RF: 0 lorazepam 0.5 mg tablet 0.5 mg PO HS Qty: 30 RF: 0 magnesium oxide 500 mg Tablet 500 mg PO QAM RF: 0 diphenhydramine-acetaminophen [Tylenol PM Extra Strength] 25-500 mg Tablet 2 tab PO HS PRN (Reason: Sleep) RF: 0 multivitamin Tablet 1 tab PO QAM RF: 0 timolol maleate 0.5 % Drops 1 drp OPL QAM RF: 0 cholecalciferol (vitamin D3) [Vitamin D3] 5,000 unit Tablet 5,000 unit PO QAM RF: 0 latanoprost 0.005 % drops 1 drp OPB HS RF: 0 acetaminophen [Tylenol Extra Strength] 500 mg Tablet 500 mg PO Q6H PRN (Reason: Pain) RF: 0 meloxicam [Mobic] 15 mg tablet 15 mg PO Q2D RF: 0 esomeprazole magnesium 40 mg capsule,delayed release(DR/EC) 40 mg PO QAM RF: 0 Discontinued valsartan 80 mg tablet 80 mg PO HS RF: 0 hydrochlorothiazide 12.5 mg tablet 12.5 mg PO QAM RF: 0 Discharge Orders: Discharge Order (Routine); Ordered 09/06/19 Ordered By: Emily Monterroso/Other Patient Handouts: ED AFIB, Apixaban oral tablets, Diltiazem extended-release capsules or tablets Admission Data Admit Date/Time: 09/05/19 14:52 Attending Provider: Emily Ellison Admit Provider: Emily Ellison Primary Care Provider: Cherelle Ayala Other Providers: Sudheer Szymanski ; Emily Ellison ; Colten Carreon Other Interventions: Discharge Summary Assessment (RN) Last Done: 09/06/19 10:43 DC Date/Time DO NOT enter until pt leaves facility: 09/06/19 11:35 Coding Level of Care Code D/C Day Management >30 mins Diagnoses Atrial fibrillation with RVR I48.91 Elevated troponin R79.89 Anxiety F41.9 Insomnia G47.00 Hypertension I10 Hypothyroidism E03.9 Hyperlipidemia E78.5 GERD (gastroesophageal reflux disease) K21.9 History of squamous cell carcinoma of skin Z85.828 History of cervical cancer Z85.41 DVT prophylaxis Z29.9
--- NOTE | 2019-09-06 16:16 | Electrocardiogram Report ---
Test Reason : Blood Pressure : / mmHG Vent. Rate : 071 BPM Atrial Rate : 071 BPM P-R Int : 146 ms QRS Dur : 080 ms QT Int : 402 ms P-R-T Axes : 073 018 011 degrees QTc Int : 436 ms Normal sinus rhythm with sinus arrhythmia Normal ECG When compared with ECG of 05-SEP-2019 10:34, Sinus rhythm has replaced Atrial fibrillation Vent. rate has decreased BY 78 BPM Confirmed by Trell Carreon ([id number]) on 09/06/2019 4:16:02 PM Referred By: Cherelle Ayala Confirmed By:Jorden Carreon
[2019-09-06] MEDS ORDERED: MELOXICAM 7.5 MG TAB PO SCH (21:00)
== END 2019-09-06 11:35 | disposition home or self-care (01) | DRG 309 ==
LOC: ED 10:03 → 2S 14:52